=== PATIENT | male | born 1990 | race Caucasian/White ===

== ENCOUNTER 2016-12-28 21:38 | Inpatient (IN) | payer OTHER ==
[2016-12-28 21:56] VITALS: BMI 23.2
--- NOTE | 2016-12-28 22:09 | HP ---
COWS - Scale Resting Pulse: 2= [place] 101-120 Sweatin=Flushed/Facial Moisture Restless Observation: 5= Unable to Sit Still Pupil Size: 1= Pupils >than Normal Bone or Joint Aches: 4=Acute Joint/Muscle Pain Runny Nose/ Eye Tearin= Nasal Congestion GI Upset > 30mins: 2= Nausea/Diarrhea Tremor Observation: 2= Slight Tremor Visible Yawning Observation: 0= None Anxiety or Irritability: 2=Irritable/Anxious Goose Flesh Skin: 0=Smooth Skin COWS Score: 21 CIWA Score - CIWA Score Nausea/Vomitin-Mild Nausea/No Vomiting Muscle Tremors: 4-Moderate,w/Arms Extend Anxiety: 4-Mod. Anxious/Guarded Agitation: 4-Moderately Restless Paroxysmal Sweats: 3 Orientation: 1-Uncertain about Date Tacttile Disturbances: 0-None Auditory Disturbances: 0-None Visual Disturbances: 0-None Headache: 0-None Present CIWA-Ar Total Score: 17 Admission ROS BHS - HPI Chief Complaint: c/o polysubstance abuse and withdrawal sx's. SEEKING DETOX TXMENT Allergies/Adverse Reactions: Allergies Allergy/AdvReac Type Severity Reaction Status Date / Time No Known Allergies Allergy Verified 12/28/16 22:00 History of Present Illness: 26 Y.O MALE WITH POLYSUBSTANCE ABUSE ADMITTED [facility] OPIOID AND BENZO DEPENDENCE. THIS IS CLIENTS FIRST TIME HERE. REPORTS LAST DETOX 2 YEARS AGO. SELF REFFERED. REPORTS LONGEST CLEAN TIME 1 YEAR Exam Limitations: No Limitations - Ebola screening Have you traveled outside of the country in the last 21 days: No (N) Have you had contact with anyone from an Ebola affected area: No Have you been sick,other than usual withdrawal symptoms: No Do you have a fever: No - Review of Systems Constitutional: Chills, Loss of Appetite, Malaise, Night Sweats, Changes in sleep EENT: reports: No Symptoms Reported Respiratory: reports: No Symptoms reported Cardiac: reports: No Symptoms Reported GI: reports: Poor Appetite, Abdominal cramping : reports: No Symptoms Reported Musculoskeletal: reports: Back Pain Integumentary: reports: No Symptoms Reported Neuro: reports: No Symptoms reported Endocrine: reports: No Symptoms Reported Hematology: reports: No Symptoms Reported Psychiatric: reports: Anxious, Depressed Other Systems: Reviewed and Negative Patient History - Patient Medical History Hx Anemia: No Hx Asthma: No Hx Chronic Obstructive Pulmonary Disease (COPD): No Hx Cancer: No Hx Cardiac Disorders: No Hx Congestive Heart Failure: No Hx Hypertension: No Hx Hypercholesterolemia: No Hx Seizures: No Hx Dementia: No Hx Diabetes: No Hx Gastrointestinal Disorders: No Hx Liver Disease: No Hx Genitourinary Disorders: No Hx Sexually Transmitted Disorders: No Hx Renal Disease (ESRD): No Hx Thyroid Disease: No Hx Human Immunodeficiency Virus (HIV): No Hx Hepatitis C: No Hx Depression: Yes (DENIES SI/HI) Hx Suicide Attempt: No Hx Bipolar Disorder: No Hx Schizophrenia: No Other Medical History: ANXIETY - Patient Surgical History Past Surgical History: No - PPD History Previous Implant?: Yes Documented Results: Negative w/o proof Implanted On Prior [facility] Admission?: No PPD to be Administered?: Yes - Smoking Cessation Smoking history: Current every day smoker Have you smoked in the past 12 months: Yes Aproximately how many cigarettes per day: 20 Cigars Per Day: 0 Hx Chewing Tobacco Use: No Initiated information on smoking cessation: Yes 'Breaking Loose' booklet given: 12/28/16 - Substance & Tx. History Hx Alcohol Use: No Hx Substance Use: Yes Substance Use Type: Heroin, Tranquilizers (XANAX) Hx Substance Use Treatment: Yes ([facility]) - Substances Abused HEROIN Route: Inhalation Frequency: Daily Amount used: 20 BAGS Age of first use: 22 Date of Last Use: 12/28/16 (5 BAGS) XANAX Route: Oral Frequency: Daily Amount used: 20 MG Age of first use: 24 Date of Last Use: 12/28/16 (8 MG) Family Disease History - Family Disease History Family History: Denies Admission Physical Exam S - Vital Signs Vital Signs: Vital Signs - 24 hr 12/28/16 21:54 Temperature 97.3 F L Pulse Rate 112 H Respiratory 20 Rate Blood Pressure 116/73 - Physical General Appearance: Yes: Appropriately Dressed, Mild Distress, Tremorous, Anxious HEENTM: Yes: EOMI, Normocephalic, Normal Voice, [place], Pharynx Normal, Nasal Congestion Respiratory: Yes: Chest Non-Tender, Lungs Clear, Normal Breath Sounds, No Respiratory Distress, No Accessory Muscle Use Neck: Yes: No masses,lesions,Nodules, Supple, Trachea in good position Breast: Yes: Breast Exam Deferred Cardiology: Yes: Regular Rhythm, Regular Rate, S1, S2, Tachycardia Abdominal: Yes: Normal Bowel Sounds, Non Tender, Soft Genitourinary: Yes: Within Normal Limits Back: Yes: Normal Inspection Musculoskeletal: Yes: full range of Motion, Gait Steady Extremities: Yes: Normal Capillary Refill, Normal Range of Motion, Non-Tender, Tremors Neurological: Yes: dry end tester II-XII NML intact, Fully Oriented, Alert, Motor Strength 5/5 Integumentary: Yes: Normal Color, Warm Lymphatic: Yes: Within Normal Limits - Diagnostic (1) Nicotine dependence Current Visit: Yes Status: Chronic Qualifiers: Nicotine product type: cigarettes Substance use status: uncomplicated Qualified Code(s): F17.210 - Nicotine dependence, cigarettes, uncomplicated (2) Opioid dependence with withdrawal Current Visit: Yes Status: Chronic (3) Sedative, hypnotic or anxiolytic dependence with withdrawal, uncomplicated Current Visit: Yes Status: Chronic Cleared for Admission [facility] - Detox or Rehab [facility] Level of Care: Medically Managed Detox Regimen/Protocol: Methadone/Valium [facility] Breath Alcohol Content Breath Alcohol Content: 0 Urine Drug Screen - Results Drug Screen Negative: No Urine Drug Screen Results: OPI-Opiates, BZO-Benzodiazepines, TCA-Tricyclic Antidepress
[2016-12-28] MEDS ORDERED: LOPERAMIDE HCL 2 MG CAPSULE PO PRN (22:18)
[2016-12-28] MEDS ORDERED: NICOTINE POLACRILEX 2 MG GUM BC PRN (22:18)
[2016-12-28] MEDS ORDERED: P-EPHED 60MG/TRIPROLIDI 2.5MG TABLET PO PRN (22:18)
[2016-12-28] MEDS ORDERED: guaiFENesin/D-METHORPHAN HB 10 ML UNIT-DOSE CUPS PO PRN (22:18)
[2016-12-28] MEDS ORDERED: METHADONE HCL 10 MG TABLET (FOR DETOX USE ONLY) PO ONE ×2 (22:18→23:00)
[2016-12-28] MEDS ORDERED: ACETAMINOPHEN 325 MG TABLET (FP) PO PRN (22:18)
[2016-12-28] MEDS ORDERED: MENTHOL/PHENOL 1 EACH UD MM PRN (22:18)
[2016-12-28] MEDS ORDERED: MAG HYDROX/AL HYDROX/SIMETH 30 ML UNIT-DOSE CUP PO PRN (22:18)
[2016-12-28] MEDS ORDERED: IBUPROFEN 400 MG TABLET (FP) PO PRN (22:18)
[2016-12-28] MEDS ORDERED: diazePAM 5 MG TABLET PO ONE (22:18)
[2016-12-28] MEDS ORDERED: MAGNESIUM CITRATE 300 ML BOTTLE PO PRN (22:18)
[2016-12-28] MEDS ORDERED: MAGNESIUM HYDROX 2400MG/30ML ORAL SUSPENSION 30 ML CUP PO PRN (22:18)
[2016-12-28] MEDS: hydrOXYzine PAMOATE 50 MG CAPSULE (FP) PO PRN (22:42)
[2016-12-28] MEDS: diazePAM 5 MG TABLET PO SCH (22:44)
[2016-12-29] MEDS: diazePAM 5 MG TABLET PO SCH ×3 (05:41→22:14)
[2016-12-29] MEDS ORDERED: METHADONE HCL 10 MG TABLET (FOR DETOX USE ONLY) PO SCH (10:00)
[2016-12-29 10:04] LABS: MCH 29.2 pg (25.7-33.7); MCHC 33.4 g/dl (32.0-35.9); MEAN CELL VOLUME 87.5 fl (80-96); MEAN PLT VOLUME 8.5 fl (7.5-11.1); PLATELET COUNT 221 K/MM3 (134-434); RDW 13.2 % (11.9-15.9); WHITE BLOOD COUNT 7.2 K/mm3 (4.0-10.0)
--- NOTE | 2016-12-29 10:09 | PN ---
[facility] CIWA - CIWA Score Nausea/Vomitin Muscle Tremors: 3 Anxiety: 3 Agitation: 3 Paroxysmal Sweats: 1-Minimal Palms Moist Orientation: 0-Oriented Tacttile Disturbances: 1-Very Mild Itch/Numbness Auditory Disturbances: 1-Very Mild Visual Disturbances: 1-Very Mild Sensitivity Headache: 2-Mild CIWA-Ar Total Score: 18 BHS COWS - Scale Resting Pulse: 1= [place] 81-100 Sweatin= Chills/Flushing Restless Observation: 3= Extraneous Movement Pupil Size: 1= Pupils >than Normal Bone or Joint Aches: 2= Severe Diffuse Aches Runny Nose/ Eye Tearin= Runny Nose/Eyes GI Upset > 30mins: 2= Nausea/Diarrhea Tremor Observation of Outstretched Hands: 2= Slight Tremor Visible Yawning Observation: 1= 1-2x During Session Anxiety or Irritability: 2=Irritable/Anxious Goose Flesh Skin: 0=Smooth Skin COWS Score: 17 [facility] Progress Note (SOAP) Subjective: ALERT,IRRITABLE,TREMOR,PAIN IN THE BODY,BACK,SWEATING Objective: 12/29/16 10:08 Vital Signs Temperature 97.5 F L 12/29/16 09:58 Pulse Rate 96 H 12/29/16 09:58 Respiratory Rate 18 12/29/16 09:58 Blood Pressure 109/64 12/29/16 09:58 O2 Sat by Pulse Oximetry (%) EKG NSR,NORMAL ECG LABS PENDING Assessment: 12/29/16 10:08 WITHDRAWAL SYMPTOM Plan: CONTINUE DETOX
[2016-12-29] MEDS: PRENATAL VITAMINS W/ FOLIC ACID TABLET (FP) PO SCH (10:11)
[2016-12-29] MEDS: diazePAM 5 MG TABLET PO PRN (10:11)
[2016-12-29] MEDS: NICOTINE 21 MG/24 HOURS TOPICAL PATCH TD SCH (10:12)
--- NOTE | 2016-12-29 10:26 | EKG ---
Test Reason : Blood Pressure : / mmHG Vent. Rate : 078 BPM Atrial Rate : 078 BPM P-R Int : 140 ms QRS Dur : 088 ms QT Int : 380 ms P-R-T Axes : 063 053 040 degrees QTc Int : 433 ms NORMAL SINUS RHYTHM NORMAL ECG NO PREVIOUS ECGS AVAILABLE Confirmed by PRATIBHA GONZALEZ, OUMOU ([id number]) on 12/29/2016 10:25:41 AM Referred By: Confirmed By:OUMOU MCKINNON MD
[2016-12-29 10:53] LABS: ALK PHOS 55 U/L (45-117); ANION GAP 9 (8-16); BILIRUBIN,TOTAL 0.3 mg/dL (0.2-1.0); CALCIUM 9.3 mg/dL (8.5-10.1); CO2 29 mmol/L (21-32); COCKROFT - GAULT 151.02; CREATININE 0.9 mg/dL (0.7-1.3); GLUCOSE,RANDOM 99 mg/dL (74-106); SGOT/AST 13 U/L (15-37); SGPT/ALT 15 U/L (12-78); TOT PROT 7.2 g/dl (6.4-8.2)
[2016-12-29] MEDS: cloNIDine HCL 0.1 MG TABLET PO SCH ×2 (12:52→22:14)
[2016-12-29] MEDS: CYCLOBENZAPRINE HCL 10 MG TABLET (FP) PO PRN (12:52)
--- NOTE | 2016-12-29 13:07 | CONSULT ---
[facility] Psychiatric Consult - Data Date of interview: 12/29/16 Admission source: [facility] Identifying data: First admission to [facility] for this 26 y/o male seeking detox treatment for heroin and benzodiazepine (xanax) dependence.Patient is single without children,domiciled (lives with his parents) ,unemployed (trained as social sciences professor) and dependent on relatives for financial support. Substance Abuse History: - Smoking Cessation. Smoking history: Current every day smoker. Have you smoked in the past 12 months: Yes. Aproximately how many cigarettes per day: 20. Cigars Per Day: 0. Hx Chewing Tobacco Use: No. Initiated information on smoking cessation: Yes. 'Breaking Loose' booklet given : 12/28/16. - Substance & Tx. History. Hx Alcohol Use: No. Hx Substance Use: Yes. Substance Use Type: Heroin, Tranquilizers (XANAX). Hx Substance Use Treatment: Yes ([facility]). - Substances Abused. HEROIN. Route: Inhalation. Frequency: Daily. Amount used: 20 BAGS. Age of first use: 22. Date of Last Use: 12/28/16 (5 BAGS). XANAX. Route: Oral. Frequency: Daily. Amount used : 20 MG. Age of first use: 24. Date of Last Use: 12/28/16 (8 MG). Confirmed by patient. Medical History: Patient endorses good general health. Psychiatric History: Patient denies. Physical/Sexual Abuse/Trauma History: Patient denies. Additional Comment: Urine Drug Screen Results: OPI-Opiates, BZO-Benzodiazepines , TCA-Tricyclic Antidepressant.Noted. Mental Status Exam - Mental Status Exam Alert and Oriented to: Time, Place, Person Cognitive Function: Good Patient Appearance: Well Groomed Mood: Hopeful, Euthymic Affect: Appropriate, Normal Range Patient Behavior: Fatigued, Appropriate, Cooperative Speech Pattern: Clear, Appropriate (fluent in senegalese) Voice Loudness: Normal Thought Process: Goal Oriented Thought Disorder: Not Present Hallucinations: Denies Suicidal Ideation: Denies Homicidal Ideation: Denies Insight/Judgement: Poor Sleep: Poorly (requests seroquel), Difficulty falling asleep Appetite: Good Muscle strength/Tone: Normal Gait/Station: Normal Psychiatric Findings - Problem List ([place] 1, 2,3) (1) Opioid dependence with withdrawal Current Visit: Yes Status: Acute (2) Sedative, hypnotic or anxiolytic dependence with withdrawal, uncomplicated Current Visit: Yes Status: Acute (3) Nicotine dependence Current Visit: Yes Status: Acute Qualifiers: Nicotine product type: cigarettes Substance use status: uncomplicated Qualified Code(s): F17.210 - Nicotine dependence, cigarettes, uncomplicated (4) Insomnia Current Visit: Yes Status: Acute - Initial Treatment Plan Initial Treatment Plan: Psychoeducation.Detoxification.Seroquel 100 mg po hs.Side effects/benefits discussed with the patient.He is made aware of the risk for metabolic syndrome,oversedation/accidental falls,hepatic dysfunction and cardiac adverse events.Mr Osuna endorses history of good tolerability/ adequate resonse to seroquel.He agrees with this careplan.Observation.
[2016-12-29] MEDS: THIAMINE HCL 100 MG TABLET (FP) PO SCH (22:14)
[2016-12-29] MEDS: QUEtiapine FUMARATE 100 MG TABLET (FP) PO SCH (22:14)
[2016-12-29] MEDS: diphenhydrAMINE HCL 50 MG CAPSULE PO PRN (22:15)
[2016-12-29 22:58] LABS: URINE APPEARANCE SLCLOUDY; URINE BILIRUBIN NEGATIVE (NEGATIVE); URINE BLOOD NEGATIVE (NEGATIVE); URINE COLOR YELLOW; URINE GLUCOSE (UA) NEGATIVE (NEGATIVE); URINE KETONE NEGATIVE (NEGATIVE); URINE LEUK ESTERASE NEGATIVE (NEGATIVE); URINE NITRITE NEGATIVE (NEGATIVE); URINE PROTEIN NEGATIVE (NEGATIVE); URINE UROBILINOGEN NEGATIVE E.U./dl (0.2-1.0)
[2016-12-30] MEDS: diazePAM 5 MG TABLET PO PRN ×2 (05:56→13:15)
[2016-12-30] MEDS: CYCLOBENZAPRINE HCL 10 MG TABLET (FP) PO PRN ×2 (05:56→13:15)
[2016-12-30] MEDS: METHADONE HCL 5 MG TABLET (FOR DETOX USE ONLY) PO SCH (10:10)
[2016-12-30] MEDS: cloNIDine HCL 0.1 MG TABLET PO SCH ×2 (10:11→22:06)
[2016-12-30] MEDS: NICOTINE 21 MG/24 HOURS TOPICAL PATCH TD SCH (10:11)
[2016-12-30] MEDS: PRENATAL VITAMINS W/ FOLIC ACID TABLET (FP) PO SCH (10:11)
[2016-12-30] MEDS: diazePAM 5 MG TABLET PO SCH ×2 (10:11→22:04)
--- NOTE | 2016-12-30 10:20 | PN ---
[facility] CIWA - CIWA Score Nausea/Vomitin-No Nausea/No Vomiting Muscle Tremors: 3 Anxiety: 4-Mod. Anxious/Guarded Agitation: 3 Paroxysmal Sweats: 3 Orientation: 0-Oriented Tacttile Disturbances: 0-None Auditory Disturbances: 0-None Visual Disturbances: 0-None Headache: 0-None Present CIWA-Ar Total Score: 13 BHS COWS - Scale Resting Pulse: 1= [place] 81-100 Sweatin=Flushed/Facial Moisture Restless Observation: 1= Difficult to Sit Still Pupil Size: 0= Normal to Room Light Bone or Joint Aches: 1= Mild Discomfort Runny Nose/ Eye Tearin= Nasal Congestion GI Upset > 30mins: 2= Nausea/Diarrhea Tremor Observation of Outstretched Hands: 2= Slight Tremor Visible Yawning Observation: 1= 1-2x During Session Anxiety or Irritability: 2=Irritable/Anxious Goose Flesh Skin: 0=Smooth Skin COWS Score: 13 S Progress Note (SOAP) Subjective: Anxiety,tremors,sweating,interrupted sleep,restless. Objective: 12/30/16 10:19 Vital Signs - 8 hr 12/30/16 12/30/16 12/30/16 03:21 06:09 09:21 Temperature 97.1 F L 96.2 F L Pulse Rate 82 85 Respiratory 18 18 18 Rate Blood Pressure 94/59 109/68 Laboratory Last Values WBC 7.2 K/mm3 (4.0-10.0) 12/29/16 07:00 RBC 4.37 M/mm3 (4.00-5.60) 12/29/16 07:00 Hgb 12.8 GM/dL (11.7-16.9) 12/29/16 07:00 Hct 38.2 % (35.4-49) 12/29/16 07:00 MCV 87.5 fl (80-96) 12/29/16 07:00 MCHC 33.4 g/dl (32.0-35.9) 12/29/16 07:00 RDW 13.2 % (11.9-15.9) 12/29/16 07:00 Plt Count 221 K/MM3 (134-434) 12/29/16 07:00 MPV 8.5 fl (7.5-11.1) 12/29/16 07:00 Sodium 142 mmol/L (136-145) 12/29/16 07:00 Potassium 3.9 mmol/L (3.5-5.1) 12/29/16 07:00 Chloride 104 mmol/L (98-107) 12/29/16 07:00 Carbon Dioxide 29 mmol/L (21-32) 12/29/16 07:00 Anion Gap 9 (8-16) 12/29/16 07:00 BUN 16 mg/dL (7-18) 12/29/16 07:00 Creatinine 0.9 mg/dL (0.7-1.3) 12/29/16 07:00 Creat Clearance w eGFR > 60 (>60) 12/29/16 07:00 Random Glucose 99 mg/dL (74-106) 12/29/16 07:00 Calcium 9.3 mg/dL (8.5-10.1) 12/29/16 07:00 Total Bilirubin 0.3 mg/dL (0.2-1.0) 12/29/16 07:00 AST 13 U/L (15-37) L 12/29/16 07:00 ALT 15 U/L (12-78) 12/29/16 07:00 Alkaline Phosphatase 55 U/L (45-117) 12/29/16 07:00 Total Protein 7.2 g/dl (6.4-8.2) 12/29/16 07:00 Albumin 4.0 g/dl (3.4-5.0) 12/29/16 07:00 Urine Color Yellow 12/29/16 22:50 Urine Appearance Slcloudy 12/29/16 22:50 Urine pH 5.0 (5.0-8.0) 12/29/16 22:50 Urine Protein Negative (NEGATIVE) 12/29/16 22:50 Urine Glucose (UA) Negative (NEGATIVE) 12/29/16 22:50 Urine Ketones Negative (NEGATIVE) 12/29/16 22:50 Urine Blood Negative (NEGATIVE) 12/29/16 22:50 Urine Nitrite Negative (NEGATIVE) 12/29/16 22:50 Urine Bilirubin Negative (NEGATIVE) 12/29/16 22:50 Urine Urobilinogen Negative E.U./dl (0.2-1.0) 12/29/16 22:50 Ur Leukocyte Esterase Negative (NEGATIVE) 12/29/16 22:50 RPR Titer Nonreactive (NONREACTIVE) 12/29/16 07:00 Hepatitis C Antibody <0.1 s/co ratio (0.0-0.9) 12/28/16 07:00 labs noted Assessment: 12/30/16 10:19 Withdrawal sx. Plan: Continue detox
[2016-12-30] MEDS: diphenhydrAMINE HCL 50 MG CAPSULE PO PRN (22:04)
[2016-12-30] MEDS: QUEtiapine FUMARATE 100 MG TABLET (FP) PO SCH (22:04)
[2016-12-30] MEDS: THIAMINE HCL 100 MG TABLET (FP) PO SCH (22:35)
[2016-12-31] MEDS: diazePAM 5 MG TABLET PO PRN ×2 (05:24→18:33)
[2016-12-31] MEDS: CYCLOBENZAPRINE HCL 10 MG TABLET (FP) PO PRN (05:24)
[2016-12-31] MEDS: PRENATAL VITAMINS W/ FOLIC ACID TABLET (FP) PO SCH (10:25)
[2016-12-31] MEDS: diazePAM 5 MG TABLET PO SCH ×2 (10:25→22:24)
[2016-12-31] MEDS: METHADONE HCL 5 MG TABLET (FOR DETOX USE ONLY) PO SCH (10:25)
[2016-12-31] MEDS: NICOTINE 21 MG/24 HOURS TOPICAL PATCH TD SCH (10:26)
[2016-12-31] MEDS: cloNIDine HCL 0.1 MG TABLET PO SCH ×2 (10:26→22:24)
--- NOTE | 2016-12-31 11:54 | PN ---
[facility] Progress Note (SOAP) Subjective: Sweating,interrupted sleep,restless Objective: 12/31/16 11:52 Vital Signs - 8 hr 12/31/16 12/31/16 06:12 09:43 Temperature 96.9 F L 97.1 F L Pulse Rate 78 84 Respiratory 18 18 Rate Blood Pressure 92/60 81/56 Laboratory Tests 12/28/16 12/29/16 12/29/16 07:00 07:00 07:00 WBC 7.2 RBC 4.37 Hgb 12.8 Hct 38.2 MCV 87.5 MCHC 33.4 RDW 13.2 Plt Count 221 MPV 8.5 Sodium 142 Potassium 3.9 Chloride 104 Carbon Dioxide 29 Anion Gap 9 BUN 16 Creatinine 0.9 Creat Clearance w eGFR > 60 Random Glucose 99 Calcium 9.3 Total Bilirubin 0.3 AST 13 L ALT 15 Alkaline Phosphatase 55 Total Protein 7.2 Albumin 4.0 Urine Color Urine Appearance Urine pH Ur Specific [place] Urine Protein Urine Glucose (UA) Urine Ketones Urine Blood Urine Nitrite Urine Bilirubin Urine Urobilinogen Ur Leukocyte Esterase RPR Titer Hepatitis C Antibody <0.1 12/29/16 12/29/16 07:00 22:50 WBC RBC Hgb Hct MCV MCHC RDW Plt Count MPV Sodium Potassium Chloride Carbon Dioxide Anion Gap BUN Creatinine Creat Clearance w eGFR Random Glucose Calcium Total Bilirubin AST ALT Alkaline Phosphatase Total Protein Albumin Urine Color Yellow Urine Appearance Slcloudy Urine pH 5.0 Ur Specific [place] 1.020 Urine Protein Negative Urine Glucose (UA) Negative Urine Ketones Negative Urine Blood Negative Urine Nitrite Negative Urine Bilirubin Negative Urine Urobilinogen Negative Ur Leukocyte Esterase Negative RPR Titer Nonreactive Hepatitis C Antibody labs noted Assessment: 12/31/16 11:53 Withdrawal sx. Plan: Continue detox
[2016-12-31] MEDS: THIAMINE HCL 100 MG TABLET (FP) PO SCH (22:25)
[2016-12-31] MEDS: diphenhydrAMINE HCL 50 MG CAPSULE PO PRN (22:25)
[2016-12-31] MEDS: QUEtiapine FUMARATE 100 MG TABLET (FP) PO SCH (22:25)
[2017-01-01] MEDS: hydrOXYzine PAMOATE 50 MG CAPSULE (FP) PO PRN ×4 (00:31→22:12)
[2017-01-01] MEDS: CYCLOBENZAPRINE HCL 10 MG TABLET (FP) PO PRN ×3 (05:55→19:24)
[2017-01-01] MEDS ORDERED: METHADONE HCL 10 MG TABLET (FOR DETOX USE ONLY) PO SCH (10:00)
[2017-01-01] MEDS ORDERED: diazePAM 5 MG TABLET PO SCH (10:00)
[2017-01-01] MEDS: PRENATAL VITAMINS W/ FOLIC ACID TABLET (FP) PO SCH (10:13)
[2017-01-01] MEDS: cloNIDine HCL 0.1 MG TABLET PO SCH ×2 (10:13→22:11)
[2017-01-01] MEDS: NICOTINE 21 MG/24 HOURS TOPICAL PATCH TD SCH (10:14)
--- NOTE | 2017-01-01 15:21 | PN ---
[facility] Progress Note (SOAP) Subjective: Tremors. Objective: PT. A & O X 3. 01/01/17 15:20 Vital Signs Temperature 97.6 F 01/01/17 13:03 Pulse Rate 76 01/01/17 13:03 Respiratory Rate 18 01/01/17 13:03 Blood Pressure 109/69 01/01/17 13:03 O2 Sat by Pulse Oximetry (%) Laboratory Last Values WBC 7.2 K/mm3 (4.0-10.0) 12/29/16 07:00 RBC 4.37 M/mm3 (4.00-5.60) 12/29/16 07:00 Hgb 12.8 GM/dL (11.7-16.9) 12/29/16 07:00 Hct 38.2 % (35.4-49) 12/29/16 07:00 MCV 87.5 fl (80-96) 12/29/16 07:00 MCHC 33.4 g/dl (32.0-35.9) 12/29/16 07:00 RDW 13.2 % (11.9-15.9) 12/29/16 07:00 Plt Count 221 K/MM3 (134-434) 12/29/16 07:00 MPV 8.5 fl (7.5-11.1) 12/29/16 07:00 Sodium 142 mmol/L (136-145) 12/29/16 07:00 Potassium 3.9 mmol/L (3.5-5.1) 12/29/16 07:00 Chloride 104 mmol/L (98-107) 12/29/16 07:00 Carbon Dioxide 29 mmol/L (21-32) 12/29/16 07:00 Anion Gap 9 (8-16) 12/29/16 07:00 BUN 16 mg/dL (7-18) 12/29/16 07:00 Creatinine 0.9 mg/dL (0.7-1.3) 12/29/16 07:00 Creat Clearance w eGFR > 60 (>60) 12/29/16 07:00 Random Glucose 99 mg/dL (74-106) 12/29/16 07:00 Calcium 9.3 mg/dL (8.5-10.1) 12/29/16 07:00 Total Bilirubin 0.3 mg/dL (0.2-1.0) 12/29/16 07:00 AST 13 U/L (15-37) L 12/29/16 07:00 ALT 15 U/L (12-78) 12/29/16 07:00 Alkaline Phosphatase 55 U/L (45-117) 12/29/16 07:00 Total Protein 7.2 g/dl (6.4-8.2) 12/29/16 07:00 Albumin 4.0 g/dl (3.4-5.0) 12/29/16 07:00 Urine Color Yellow 12/29/16 22:50 Urine Appearance Slcloudy 12/29/16 22:50 Urine pH 5.0 (5.0-8.0) 12/29/16 22:50 Ur Specific [place] 1.020 (1.005-1.025) 12/29/16 22:50 Urine Protein Negative (NEGATIVE) 12/29/16 22:50 Urine Glucose (UA) Negative (NEGATIVE) 12/29/16 22:50 Urine Ketones Negative (NEGATIVE) 12/29/16 22:50 Urine Blood Negative (NEGATIVE) 12/29/16 22:50 Urine Nitrite Negative (NEGATIVE) 12/29/16 22:50 Urine Bilirubin Negative (NEGATIVE) 12/29/16 22:50 Urine Urobilinogen Negative E.U./dl (0.2-1.0) 12/29/16 22:50 Ur Leukocyte Esterase Negative (NEGATIVE) 12/29/16 22:50 RPR Titer Nonreactive (NONREACTIVE) 12/29/16 07:00 Hepatitis C Antibody <0.1 s/co ratio (0.0-0.9) 12/28/16 07:00 LABS NOTED. 01/01/17 15:21 Assessment: 01/01/17 15:21 WITHDRAWAL SYMPTOMS. Plan: CONTINUE DETOX.
[2017-01-01] MEDS: QUEtiapine FUMARATE 100 MG TABLET (FP) PO SCH (22:11)
[2017-01-01] MEDS: THIAMINE HCL 100 MG TABLET (FP) PO SCH (22:11)
[2017-01-01] MEDS: diphenhydrAMINE HCL 50 MG CAPSULE PO PRN (23:40)
[2017-01-02] MEDS: CYCLOBENZAPRINE HCL 10 MG TABLET (FP) PO PRN (05:54)
[2017-01-02] MEDS ORDERED: METHADONE HCL 5 MG TABLET (FOR DETOX USE ONLY) PO SCH (06:00)
[2017-01-02 06:20] VITALS: BP 99/67; PULSE 75; TEMP 96.2
--- NOTE | 2017-01-02 12:58 | DS ---
[facility] Detox Discharge Summary Admission Date: 12/28/16 Discharge Date: 01/02/17 - History Present History: Opioid Dependence, Sedative Dependence Pertinent Past History: Denies pmhx Laboratory Tests 12/28/16 12/29/16 12/29/16 07:00 07:00 07:00 WBC 7.2 RBC 4.37 Hgb 12.8 Hct 38.2 MCV 87.5 MCHC 33.4 RDW 13.2 Plt Count 221 MPV 8.5 Sodium 142 Potassium 3.9 Chloride 104 Carbon Dioxide 29 Anion Gap 9 BUN 16 Creatinine 0.9 Creat Clearance w eGFR > 60 Random Glucose 99 Calcium 9.3 Total Bilirubin 0.3 AST 13 L ALT 15 Alkaline Phosphatase 55 Total Protein 7.2 Albumin 4.0 Urine Color Urine Appearance Urine pH Ur Specific [place] Urine Protein Urine Glucose (UA) Urine Ketones Urine Blood Urine Nitrite Urine Bilirubin Urine Urobilinogen Ur Leukocyte Esterase RPR Titer Hepatitis C Antibody <0.1 12/29/16 12/29/16 07:00 22:50 WBC RBC Hgb Hct MCV MCHC RDW Plt Count MPV Sodium Potassium Chloride Carbon Dioxide Anion Gap BUN Creatinine Creat Clearance w eGFR Random Glucose Calcium Total Bilirubin AST ALT Alkaline Phosphatase Total Protein Albumin Urine Color Yellow Urine Appearance Slcloudy Urine pH 5.0 Ur Specific [place] 1.020 Urine Protein Negative Urine Glucose (UA) Negative Urine Ketones Negative Urine Blood Negative Urine Nitrite Negative Urine Bilirubin Negative Urine Urobilinogen Negative Ur Leukocyte Esterase Negative RPR Titer Nonreactive Hepatitis C Antibody Labs noted - Physical Exam Results Vital Signs: Vital Signs Temperature 96.2 F L 01/02/17 06:20 Pulse Rate 75 01/02/17 06:20 Respiratory Rate 18 01/02/17 06:20 Blood Pressure 99/67 01/02/17 06:20 O2 Sat by Pulse Oximetry (%) - Treatment Hospital Course: Detox Protocol Followed, Detoxed Safely, Responded well, Discharged Condition Good - Medication Discharge Medications: Ambulatory Orders Quetiapine Fumarate [Seroquel] 100 mg PO HS #30 tablet 12/29/16 - Diagnosis (1) Nicotine dependence Status: Chronic Qualifiers: Nicotine product type: cigarettes Substance use status: uncomplicated Qualified Code(s): F17.210 - Nicotine dependence, cigarettes, uncomplicated (2) Opioid dependence with withdrawal Status: Acute (3) Sedative, hypnotic or anxiolytic dependence with withdrawal, uncomplicated Status: Acute (4) Depression Status: Chronic - AMA Did Patient Leave Against Medical Advice: No
== END 2017-01-02 06:58 | disposition home or self-care (01) | DRG 773 ==
LOC: YASAS 21:38 → Y3N 21:57
PROVIDERS: ADMIT Internal Medicine; ATTEND Internal Medicine
PROC: HZ2ZZZZ Detoxification Services for Substance Abuse Treatment (ICD-10-PCS; principal; 2017-01-02)
DX: F11.23 Opioid dependence with withdrawal (principal); F13.230 Sedative, hypnotic or anxiolytic dependence with withdrawal, uncomplicated; F17.210 Nicotine dependence, cigarettes, uncomplicated; F32.9 Major depressive disorder, single episode, unspecified; G47.00 Insomnia, unspecified
CPT/HCPCS: 36415; 80053; 81003; 85027; 86593; 86803; 93005; 93010

== ENCOUNTER 2017-07-14 13:51 | Inpatient (IN) | payer BC, OTHER ==
[2017-07-14 16:01] VITALS: BMI 23.7
--- NOTE | 2017-07-14 17:19 | HP ---
COWS - Scale Resting Pulse: 1= IA 81-100 Sweatin= Chills/Flushing Restless Observation: 3= Extraneous Movement Pupil Size: 0= Normal to Room Light Bone or Joint Aches: 2= Severe Diffuse Aches Runny Nose/ Eye Tearin= Runny Nose/Eyes GI Upset > 30mins: 1= Stomach Cramp Tremor Observation: 2= Slight Tremor Visible Yawning Observation: 0= None Anxiety or Irritability: 2=Irritable/Anxious Goose Flesh Skin: 0=Smooth Skin COWS Score: [address] [facility] Chief Complaint: withdrawal sx Allergies/Adverse Reactions: Allergies Allergy/AdvReac Type Severity Reaction Status Date / Time No Known Allergies Allergy Verified 07/14/17 17:21 History of Present Illness: 26 years old male with long history of opiate nicotine dependence has anxiety and depression is admitted to detox Exam Limitations: No Limitations - Ebola screening Have you traveled outside of the country in the last 21 days: No Have you had contact with anyone from an Ebola affected area: No Have you been sick,other than usual withdrawal symptoms: No Do you have a fever: No - Review of Systems Constitutional: Loss of Appetite, Changes in sleep, Unintentional Wgt. Loss EENT: reports: No Symptoms Reported Respiratory: reports: No Symptoms reported Cardiac: reports: No Symptoms Reported GI: reports: Poor Fluid Intake, Abdominal cramping : reports: No Symptoms Reported Musculoskeletal: reports: Back Pain, Joint Pain, Muscle Pain, Neck Pain Integumentary: reports: No Symptoms Reported Neuro: reports: Tremors Endocrine: reports: No Symptoms Reported Hematology: reports: No Symptoms Reported Psychiatric: reports: Judgement Intact, Orientated x3, Anxious, Depressed Other Systems: Reviewed and Negative Patient History - Patient Medical History Hx Anemia: No Hx Asthma: No Hx Chronic Obstructive Pulmonary Disease (COPD): No Hx Cancer: No Hx Cardiac Disorders: No Hx Congestive Heart Failure: No Hx Hypertension: No Hx Hypercholesterolemia: No Hx Pacemaker: No HX Cerebrovascular Accident: No Hx Seizures: No Hx Dementia: No Hx Diabetes: No Hx Gastrointestinal Disorders: No Hx Liver Disease: No Hx Genitourinary Disorders: No Hx Sexually Transmitted Disorders: No Hx Renal Disease (ESRD): No Hx Thyroid Disease: No Hx Human Immunodeficiency Virus (HIV): No Hx Hepatitis C: No Hx Depression: Yes (DENIES SI/HI) Hx Suicide Attempt: No Hx Bipolar Disorder: No Hx Schizophrenia: No - Patient Surgical History Past Surgical History: No Hx Neurologic Surgery: No Hx Cataract Extraction: No Hx Cardiac Surgery: No Hx Lung Surgery: No Hx Breast Surgery: No Hx Breast Biopsy: No Hx Abdominal Surgery: No Hx Appendectomy: No Hx Cholecystectomy: No Hx Genitourinary Surgery: No Hx Orthopedic Surgery: No - PPD History Previous Implant?: Yes Documented Results: Negative w/proof Implanted On Prior [facility] Admission?: Yes Date: 12/30/16 PPD to be Administered?: No - Smoking Cessation Smoking history: Current every day smoker Have you smoked in the past 12 months: Yes Aproximately how many cigarettes per day: 20 Cigars Per Day: 0 Hx Chewing Tobacco Use: No Initiated information on smoking cessation: Yes 'Breaking Loose' booklet given: 07/14/17 - Substance & Tx. History Hx Alcohol Use: No Hx Substance Use: Yes Substance Use Type: Cocaine, Heroin, Marijuana Hx Substance Use Treatment: Yes (12/2016 [facility] - Substances Abused Xanax Route: Oral Frequency: Daily Amount used: 16 mg. Age of first use: 20 Date of Last Use: 07/13/17 Marijuana Route: Smoking Frequency: 3-6 times per week Amount used: $20 Age of first use: 18 Date of Last Use: 07/12/17 Family Disease History - Family Disease History Family Disease History: [place]: Father, Other: Father, Brother (/mva) Admission Physical Exam BHS - Vital Signs Vital Signs: Vital Signs - 24 hr 07/14/17 16:00 Temperature 93 F L Pulse Rate 85 Respiratory 20 Rate Blood Pressure 123/70 - Physical General Appearance: Yes: Nourished, Appropriately Dressed, Mild Distress, Tremorous, Irritable, Sweating, Anxious HEENTM: Yes: Hearing grossly Normal, Normal ENT Inspection, Normocephalic, Normal Voice Respiratory: Yes: Chest Non-Tender, Lungs Clear, Normal Breath Sounds, No Respiratory Distress, No Accessory Muscle Use Neck: Yes: Supple, Trachea in good position Breast: Yes: Breasts Symetrical Cardiology: Yes: Regular Rhythm, Regular Rate, S1, S2 Abdominal: Yes: Normal Bowel Sounds, Non Tender, Soft Genitourinary: Yes: Within Normal Limits Back: Yes: Normal Inspection Musculoskeletal: Yes: full range of Motion, Gait Steady, Back pain, Muscle Pain Extremities: Yes: Normal Inspection, Normal Range of Motion, Non-Tender, Tremors Neurological: Yes: Fully Oriented, Alert, Motor Strength 5/5, Normal Response, Depressed Affect Integumentary: Yes: Warm Lymphatic: Yes: Within Normal Limits - Diagnostic (1) Weight loss Current Visit: Yes Status: Acute (2) Opioid dependence with withdrawal Current Visit: Yes Status: Acute (3) Nicotine dependence Current Visit: Yes Status: Acute Qualifiers: Nicotine product type: cigarettes Substance use status: in withdrawal Qualified Code(s): F17.213 - Nicotine dependence, cigarettes, with withdrawal Cleared for Admission [facility] - Detox or Rehab [facility] Level of Care: Medically Managed Detox Regimen/Protocol: Methadone [facility] Breath Alcohol Content Breath Alcohol Content: 0 Urine Drug Screen - Control Is Test Valid: Yes - Results Drug Screen Negative: No Urine Drug Screen Results: THC-Marijuana, TEA-Cocaine, OPI-Opiates
[2017-07-14] MEDS ORDERED: MENTHOL/PHENOL 1 EACH UD MM PRN (17:26)
[2017-07-14] MEDS ORDERED: NICOTINE POLACRILEX 4 MG GUM BC PRN (17:26)
[2017-07-14] MEDS ORDERED: MAGNESIUM CITRATE 300 ML BOTTLE PO PRN (17:26)
[2017-07-14] MEDS ORDERED: LOPERAMIDE HCL 2 MG CAPSULE PO PRN (17:26)
[2017-07-14] MEDS ORDERED: METHADONE HCL 10 MG TABLET (FOR DETOX USE ONLY) PO ONE ×2 (17:26→23:00)
[2017-07-14] MEDS ORDERED: ACETAMINOPHEN 325 MG TABLET (FP) PO PRN (17:26)
[2017-07-14] MEDS ORDERED: guaiFENesin/D-METHORPHAN HB 10 ML UNIT-DOSE CUPS PO PRN (17:26)
[2017-07-14] MEDS ORDERED: IBUPROFEN 400 MG TABLET (FP) PO PRN (17:26)
[2017-07-14] MEDS ORDERED: MAG HYDROX/AL HYDROX/SIMETH 30 ML UNIT-DOSE CUP PO PRN (17:26)
[2017-07-14] MEDS ORDERED: MAGNESIUM HYDROX 2400MG/30ML ORAL SUSPENSION 30 ML CUP PO PRN (17:26)
[2017-07-14] MEDS ORDERED: P-EPHED 60MG/TRIPROLIDI 2.5MG TABLET PO PRN (17:26)
[2017-07-14] MEDS ORDERED: METHADONE HCL 10 MG TABLET (FOR DETOX USE ONLY) ONE (21:02)
[2017-07-14] MEDS: diazePAM 5 MG TABLET PO PRN (21:04)
[2017-07-14] MEDS: THIAMINE HCL 100 MG TABLET (FP) PO SCH (21:04)
[2017-07-15 03:09] LABS: URINE APPEARANCE CLEAR; URINE BILIRUBIN NEGATIVE (NEGATIVE); URINE BLOOD NEGATIVE (NEGATIVE); URINE COLOR YELLOW; URINE GLUCOSE (UA) NEGATIVE (NEGATIVE); URINE KETONE NEGATIVE (NEGATIVE); URINE NITRITE NEGATIVE (NEGATIVE); URINE PROTEIN NEGATIVE (NEGATIVE); URINE UROBILINOGEN NEGATIVE mg/dL (0.2-1.0)
[2017-07-15 09:53] LABS: MCH 29.5 pg (25.7-33.7); MCHC 33.8 g/dl (32.0-35.9); MEAN CELL VOLUME 87.4 fl (80-96); MEAN PLT VOLUME 8.4 fl (7.5-11.1); PLATELET COUNT 269 K/MM3 (134-434); WHITE BLOOD COUNT 6.1 K/mm3 (4.0-10.0)
[2017-07-15] MEDS ORDERED: METHADONE HCL 10 MG TABLET (FOR DETOX USE ONLY) PO ONE (10:00)
--- NOTE | 2017-07-15 10:12 | EKG ---
Test Reason : Blood Pressure : / mmHG Vent. Rate : 070 BPM Atrial Rate : 070 BPM P-R Int : 134 ms QRS Dur : 088 ms QT Int : 398 ms P-R-T Axes : 060 059 041 degrees QTc Int : 429 ms NORMAL SINUS RHYTHM NORMAL ECG WHEN COMPARED WITH ECG OF 28-DEC-2016 21:48, NO SIGNIFICANT CHANGE WAS FOUND Confirmed by ASUNCION DONOVAN MD ([id number]) on 07/15/2017 10:11:56 AM Referred By: Confirmed By:ASUNCION DONVOAN MD
[2017-07-15 10:15] LABS: ALBUMIN 3.4 g/dl (3.4-5.0); ALK PHOS 59 U/L (45-117); ANION GAP 5 (8-16); BILIRUBIN,TOTAL 0.7 mg/dL (0.2-1.0); CALCIUM 8.3 mg/dL (8.5-10.1); CO2 31 mmol/L (21-32); CREATININE 0.8 mg/dL (0.7-1.3); GLUCOSE,RANDOM 92 mg/dL (74-106); SGOT/AST 10 U/L (15-37); SGPT/ALT 15 U/L (12-78); TOT PROT 6.6 g/dl (6.4-8.2)
[2017-07-15] MEDS: NICOTINE 21 MG/24 HOURS TOPICAL PATCH TD SCH (10:21)
[2017-07-15] MEDS: diazePAM 5 MG TABLET PO PRN ×3 (10:21→20:03)
[2017-07-15] MEDS: PRENATAL VITAMINS W/ FOLIC ACID TABLET (FP) PO SCH (10:21)
[2017-07-15 12:02] LABS: URINE LEUK ESTERASE Negative (NEGATIVE)
--- NOTE | 2017-07-15 15:31 | PN ---
BHS COWS - Scale Resting Pulse: 0= CT 80 or Below Sweatin= Chills/Flushing Restless Observation: 1= Difficult to Sit Still Pupil Size: 0= Normal to Room Light Bone or Joint Aches: 1= Mild Discomfort Runny Nose/ Eye Tearin= Nasal Congestion GI Upset > 30mins: 0= None Tremor Observation of Outstretched Hands: 2= Slight Tremor Visible Yawning Observation: 2= >3x During Session Anxiety or Irritability: 2=Irritable/Anxious Goose Flesh Skin: 3=Piloerection COWS Score: 13 BHS Progress Note (SOAP) Subjective: Fatigue, Interrupted Sleep, Anxious. Objective: PT. A & O X 3, OBSERVED AMBULATING ON UNIT. NO ACUTE DISTRESS. 07/15/17 15:32 Vital Signs Temperature 98.2 F 07/15/17 13:47 Pulse Rate 77 07/15/17 13:47 Respiratory Rate 20 07/15/17 13:47 Blood Pressure 100/66 07/15/17 13:47 O2 Sat by Pulse Oximetry (%) Laboratory Tests 07/15/17 07/15/17 07/15/17 00:00 07:00 07:00 WBC 6.1 RBC 4.30 Hgb 12.7 Hct 37.6 MCV 87.4 MCH 29.5 MCHC 33.8 RDW 13.0 Plt Count 269 D MPV 8.4 Sodium 138 Potassium 4.1 Chloride 102 Carbon Dioxide 31 Anion Gap 5 L BUN 12 D Creatinine 0.8 Creat Clearance w eGFR > 60 Random Glucose 92 Calcium 8.3 L Total Bilirubin 0.7 D AST 10 L D ALT 15 Alkaline Phosphatase 59 Total Protein 6.6 Albumin 3.4 Urine Color Yellow Urine Appearance Clear Urine pH 6.0 Ur Specific [place] 1.023 Urine Protein Negative Urine Glucose (UA) Negative Urine Ketones Negative Urine Blood Negative Urine Nitrite Negative Urine Bilirubin Negative Urine Urobilinogen Negative Ur Leukocyte Esterase Negative RPR Titer 07/15/17 07:00 WBC RBC Hgb Hct MCV MCH MCHC RDW Plt Count MPV Sodium Potassium Chloride Carbon Dioxide Anion Gap BUN Creatinine Creat Clearance w eGFR Random Glucose Calcium Total Bilirubin AST ALT Alkaline Phosphatase Total Protein Albumin Urine Color Urine Appearance Urine pH Ur Specific [place] Urine Protein Urine Glucose (UA) Urine Ketones Urine Blood Urine Nitrite Urine Bilirubin Urine Urobilinogen Ur Leukocyte Esterase RPR Titer Nonreactive LABS NOTED. Assessment: 07/15/17 15:33 WITHDRAWAL SYMPTOMS. Plan: CONTINUE DETOX. INCREASE DAILY PO FLUID INTAKE.
[2017-07-15] MEDS: THIAMINE HCL 100 MG TABLET (FP) PO SCH (22:13)
[2017-07-16] MEDS ORDERED: METHADONE HCL 5 MG TABLET (FOR DETOX USE ONLY) PO ONE (10:00)
[2017-07-16] MEDS: diazePAM 5 MG TABLET PO PRN ×3 (10:10→20:32)
[2017-07-16] MEDS: PRENATAL VITAMINS W/ FOLIC ACID TABLET (FP) PO SCH (10:10)
[2017-07-16] MEDS: NICOTINE 21 MG/24 HOURS TOPICAL PATCH TD SCH (10:11)
[2017-07-16] MEDS: CYCLOBENZAPRINE HCL 10 MG TABLET (FP) PO PRN ×2 (13:27→21:28)
--- NOTE | 2017-07-16 14:18 | PN ---
[facility] CIWA - CIWA Score Nausea/Vomitin-No Nausea/No Vomiting Muscle Tremors: 4-Moderate,w/Arms Extend Anxiety: 4-Mod. Anxious/Guarded Agitation: 3 Paroxysmal Sweats: 3 Orientation: 0-Oriented Tacttile Disturbances: 3-Moderate Itch/Numb/Burn Auditory Disturbances: 0-None Visual Disturbances: 0-None Headache: 0-None Present CIWA-Ar Total Score: 17 S Progress Note (SOAP) Subjective: Tremors, Body Aches, Sweating. Objective: PT. A & O X 3, OBSERVED AMBULATING ON UNIT. NO ACUTE DISTRESS. 07/16/17 14:16 Vital Signs Temperature 97.4 F L 07/16/17 13:19 Pulse Rate 79 07/16/17 13:19 Respiratory Rate 16 07/16/17 13:19 Blood Pressure 108/66 07/16/17 13:19 O2 Sat by Pulse Oximetry (%) Laboratory Tests 07/15/17 07/15/17 07/15/17 00:00 07:00 07:00 WBC 6.1 RBC 4.30 Hgb 12.7 Hct 37.6 MCV 87.4 MCH 29.5 MCHC 33.8 RDW 13.0 Plt Count 269 D MPV 8.4 Sodium 138 Potassium 4.1 Chloride 102 Carbon Dioxide 31 Anion Gap 5 L BUN 12 D Creatinine 0.8 Creat Clearance w eGFR > 60 Random Glucose 92 Calcium 8.3 L Total Bilirubin 0.7 D AST 10 L D ALT 15 Alkaline Phosphatase 59 Total Protein 6.6 Albumin 3.4 Urine Color Yellow Urine Appearance Clear Urine pH 6.0 Ur Specific [place] 1.023 Urine Protein Negative Urine Glucose (UA) Negative Urine Ketones Negative Urine Blood Negative Urine Nitrite Negative Urine Bilirubin Negative Urine Urobilinogen Negative Ur Leukocyte Esterase Negative RPR Titer 07/15/17 07:00 WBC RBC Hgb Hct MCV MCH MCHC RDW Plt Count MPV Sodium Potassium Chloride Carbon Dioxide Anion Gap BUN Creatinine Creat Clearance w eGFR Random Glucose Calcium Total Bilirubin AST ALT Alkaline Phosphatase Total Protein Albumin Urine Color Urine Appearance Urine pH Ur Specific [place] Urine Protein Urine Glucose (UA) Urine Ketones Urine Blood Urine Nitrite Urine Bilirubin Urine Urobilinogen Ur Leukocyte Esterase RPR Titer Nonreactive LABS NOTED. Assessment: 07/16/17 14:17 WITHDRAWAL SYMPTOMS. Plan: CONTINUE DETOX. PRN FLEXERIL FOR BODY ACHES / MUSCLE SPASMS. INCREASE DAILY PO FLUID INTAKE.
[2017-07-16] MEDS: THIAMINE HCL 100 MG TABLET (FP) PO SCH (21:23)
[2017-07-17] MEDS ORDERED: METHADONE HCL 5 MG TABLET (FOR DETOX USE ONLY) PO ONE (10:00)
[2017-07-17] MEDS ORDERED: METHADONE HCL 10 MG TABLET (FOR DETOX USE ONLY) PO ONE (10:00)
[2017-07-17] MEDS: diazePAM 5 MG TABLET PO PRN (10:21)
[2017-07-17] MEDS: NICOTINE 21 MG/24 HOURS TOPICAL PATCH TD SCH (10:23)
[2017-07-17] MEDS: PRENATAL VITAMINS W/ FOLIC ACID TABLET (FP) PO SCH (10:23)
[2017-07-17] MEDS: CYCLOBENZAPRINE HCL 10 MG TABLET (FP) PO PRN ×2 (10:23→22:07)
--- NOTE | 2017-07-17 14:38 | PN ---
BHS Progress Note (SOAP) Subjective: Sweating, interrupted sleep, anxious; patient requesting to have methadone 10mg today so that he can be discharged tomorrow. Objective: 07/17/17 14:34 Last Vital Signs Temp Pulse Resp BP Pulse Ox 99.2 F 61 18 104/70 07/17/17 13:14 07/17/17 13:14 07/17/17 13:14 07/17/17 13:14 Laboratory Tests 07/15/17 07/15/17 07/15/17 00:00 07:00 07:00 WBC 6.1 RBC 4.30 Hgb 12.7 Hct 37.6 MCV 87.4 MCH 29.5 MCHC 33.8 RDW 13.0 Plt Count 269 D MPV 8.4 Sodium 138 Potassium 4.1 Chloride 102 Carbon Dioxide 31 Anion Gap 5 L BUN 12 D Creatinine 0.8 Creat Clearance w eGFR > 60 Random Glucose 92 Calcium 8.3 L Total Bilirubin 0.7 D AST 10 L D ALT 15 Alkaline Phosphatase 59 Total Protein 6.6 Albumin 3.4 Urine Color Yellow Urine Appearance Clear Urine pH 6.0 Ur Specific [place] 1.023 Urine Protein Negative Urine Glucose (UA) Negative Urine Ketones Negative Urine Blood Negative Urine Nitrite Negative Urine Bilirubin Negative Urine Urobilinogen Negative Ur Leukocyte Esterase Negative RPR Titer 07/15/17 07:00 WBC RBC Hgb Hct MCV MCH MCHC RDW Plt Count MPV Sodium Potassium Chloride Carbon Dioxide Anion Gap BUN Creatinine Creat Clearance w eGFR Random Glucose Calcium Total Bilirubin AST ALT Alkaline Phosphatase Total Protein Albumin Urine Color Urine Appearance Urine pH Ur Specific [place] Urine Protein Urine Glucose (UA) Urine Ketones Urine Blood Urine Nitrite Urine Bilirubin Urine Urobilinogen Ur Leukocyte Esterase RPR Titer Nonreactive Labs noted Assessment: 07/17/17 14:36 Withdrawal symptoms Plan: Continue detox Detox protocol adjusted at patient's request, ordered for discharge home tomorrow. Instructed to follow up with PCP within 1 week post discharge.
[2017-07-17] MEDS: THIAMINE HCL 100 MG TABLET (FP) PO SCH (22:07)
[2017-07-18] MEDS: CYCLOBENZAPRINE HCL 10 MG TABLET (FP) PO PRN (05:53)
[2017-07-18] MEDS ORDERED: METHADONE HCL 5 MG TABLET (FOR DETOX USE ONLY) PO ONE (06:00)
[2017-07-18 06:27] VITALS: BP 105/68; PULSE 52; TEMP 96.7
--- NOTE | 2017-07-18 08:24 | DS ---
[facility] Detox Discharge Summary Admission Date: 07/14/17 Discharge Date: 07/18/17 - History Present History: Cannabis Dependence, Opioid Dependence, Sedative Dependence Additional Comments: follow up tin, dehydration on admission Pertinent Past History: depression ,anxiety, insomnia, nicotine dependence - Physical Exam Results Vital Signs: Vital Signs Temperature 96.7 F L 07/18/17 06:27 Pulse Rate 52 L 07/18/17 06:27 Respiratory Rate 18 07/18/17 06:27 Blood Pressure 105/68 07/18/17 06:27 O2 Sat by Pulse Oximetry (%) Laboratory Tests 07/15/17 07/15/17 07/15/17 00:00 07:00 07:00 WBC 6.1 RBC 4.30 Hgb 12.7 Hct 37.6 MCV 87.4 MCH 29.5 MCHC 33.8 RDW 13.0 Plt Count 269 D MPV 8.4 Sodium 138 Potassium 4.1 Chloride 102 Carbon Dioxide 31 Anion Gap 5 L BUN 12 D Creatinine 0.8 Creat Clearance w eGFR > 60 Random Glucose 92 Calcium 8.3 L Total Bilirubin 0.7 D AST 10 L D ALT 15 Alkaline Phosphatase 59 Total Protein 6.6 Albumin 3.4 Urine Color Yellow Urine Appearance Clear Urine pH 6.0 Ur Specific [place] 1.023 Urine Protein Negative Urine Glucose (UA) Negative Urine Ketones Negative Urine Blood Negative Urine Nitrite Negative Urine Bilirubin Negative Urine Urobilinogen Negative Ur Leukocyte Esterase Negative RPR Titer 07/15/17 07:00 WBC RBC Hgb Hct MCV MCH MCHC RDW Plt Count MPV Sodium Potassium Chloride Carbon Dioxide Anion Gap BUN Creatinine Creat Clearance w eGFR Random Glucose Calcium Total Bilirubin AST ALT Alkaline Phosphatase Total Protein Albumin Urine Color Urine Appearance Urine pH Ur Specific [place] Urine Protein Urine Glucose (UA) Urine Ketones Urine Blood Urine Nitrite Urine Bilirubin Urine Urobilinogen Ur Leukocyte Esterase RPR Titer Nonreactive Pertinent Admission Physical Exam Findings: withdrawal sx, dehydration - Treatment Hospital Course: Detox Protocol Followed, Detoxed Safely, Responded well, Discharged Condition Good, Rehab Referral Accepted Patient has Accepted a Rehab Referral to: Yes - Medication Discharge Medications: Ambulatory Orders Quetiapine Fumarate [Seroquel] 100 mg PO HS #30 tablet 12/29/16 - Diagnosis (1) Opioid dependence with withdrawal Current Visit: Yes Status: Acute (2) Cannabis dependence Current Visit: Yes Status: Chronic (3) Depression Current Visit: Yes Status: Chronic (4) Nicotine dependence Current Visit: Yes Status: Chronic Qualifiers: Nicotine product type: cigarettes Substance use status: in withdrawal Qualified Code(s): F17.213 - Nicotine dependence, cigarettes, with withdrawal (5) Insomnia Current Visit: No Status: Acute (6) Sedative, hypnotic or anxiolytic dependence with withdrawal, uncomplicated Current Visit: No Status: Acute (7) Dehydration Current Visit: Yes Status: Acute (8) Weight loss Current Visit: Yes Status: Acute - AMA Did Patient Leave Against Medical Advice: No
[2017-07-18] MEDS: PRENATAL VITAMINS W/ FOLIC ACID TABLET (FP) PO SCH (09:36)
[2017-07-18] MEDS: NICOTINE 21 MG/24 HOURS TOPICAL PATCH TD SCH (09:36)
[2017-07-18] MEDS ORDERED: METHADONE HCL 10 MG TABLET (FOR DETOX USE ONLY) PO ONE (10:00)
[2017-07-19] MEDS ORDERED: METHADONE HCL 5 MG TABLET (FOR DETOX USE ONLY) PO ONE (06:00)
== END 2017-07-18 08:31 | disposition home or self-care (01) | DRG 773 ==
LOC: YASAS 13:51 → Y3N 18:56
PROVIDERS: ADMIT Internal Medicine; ATTEND Internal Medicine
PROC: HZ2ZZZZ Detoxification Services for Substance Abuse Treatment (ICD-10-PCS; principal; 2017-07-14)
DX: F11.23 Opioid dependence with withdrawal (principal); F13.230 Sedative, hypnotic or anxiolytic dependence with withdrawal, uncomplicated; F12.20 Cannabis dependence, uncomplicated; F17.213 Nicotine dependence, cigarettes, with withdrawal; F32.9 Major depressive disorder, single episode, unspecified; E86.0 Dehydration; R63.4 Abnormal weight loss; Z68.23 Body mass index [BMI] 23.0-23.9, adult
CPT/HCPCS: 36415; 80053; 81003; 85027; 86593; 93005; 93010